=== PATIENT | female | born 2000 | race African-American/Black ===

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

== ENCOUNTER 2020-06-25 10:49 | Emergency (ER) | payer SELFPAY ==
[~2020-06-25] VITALS: Ht 167.6 cm; Wt 99.3 kg
[2020-06-25 11:01] VITALS: BP 130/92
--- NOTE | 2020-06-25 12:00 | NUR ---
CALLED PT. PT IS NOT IN THE TENT. WILL CALL HER LATER.
--- NOTE | 2020-06-25 12:20 | NUR ---
CALLED PT AGAIN, PT IS NOT IN THE TENT. PATIENT LEFT WITHOUT BEING SEEN BY DR. DR. FREEMAN. NO FURTHER CARE PROVIDED FOR PATIENT. DR. FREEMAN MADE AWARE.
== END 2020-06-25 12:00 | disposition left against medical advice (07) ==
LOC: MED 10:49
DX: R07.0 Pain in throat (principal); Z53.21 Procedure and treatment not carried out due to patient leaving prior to being seen by health care provider